=== PATIENT | female | born 1965 | race Caucasian/White ===

== ENCOUNTER 2020-10-21 14:58 | Observation (INO) ==
[2020-10-21 16:18] LABS: Basophils # 0.1 10*3/uL (0.0-0.2); Basophils % 0.4 % (0.0-0.8); Eosinophils % 0.1 % (0.00-10.9); Hematocrit 37.1 VOL% (35.7-47.0); Hemoglobin 13.6 GM/DL (12.0-16.0); Immature Granulocytes % 0.6 %; Immature Granulocytes Absolute 0.08 #; Lymphocytes # 0.6 10*3/uL (1.4-4.0); Lymphocytes % 4.5 % (21.3-54.2); Mean Corpuscular HGB Conc 36.7 GM/DL (32-36); Mean Corpuscular Volume 87.3 FL (87-102); Mean Platelet Volume 9.8 FL (9.6-12.0); Monocytes % 13.7 % (1.7-12.7); NRBC # 0.02 10*3/uL; Neutrophils % 80.7 % (38.7-73.9); Platelet Count 162 T/CUMM (130-400); Red Blood Count 4.25 MC/CUMM (3.8-5.5); Red Cell Distribution Width 14.3 % (9.3-17.3); White Blood Count 14.2 T/CUMM (4-12)
[2020-10-21 16:30] LABS: INR 1.2; PT Patient Result 12.3 SECS (9.8-11.9)
[2020-10-21 16:34] LABS: Bacteria,Urine Many /HPF (Few); Bilirubin,Urine Negative (Negative); Blood, Urine Large mg/dL (Negative); Glucose,Urine (UA) Negative (Negative); Ketones,Urine 5 mg/dL (Negative); Nitrite,Urine Positive (Negative); Protein,Urine 100 MG/DL; RBC,Urine 16 /HPF (0-4); Squamous Epithelial Cell,Urine Occasional /HPF (0-10); Urine Appearance Slightly Hazy (Clear); Urine Color Yellow (Yellow); Urine Specific Gravity 1.015 (1.001-1.035); Urine Urobilinogen < 2.0 EU/DL (0.2-1.0); WBC,Urine 105 /HPF (0-6)
[2020-10-21 16:37] LABS: Barbiturates Screen,Urine Negative (Negative); Benzodiazepines Screen,Urine Negative (Negative); Cannabinoid Screen,Urine Negative (Negative); Opiate Screen,Urine Negative (Negative); Phencyclidine Screen,Urine Negative (Negative)
[2020-10-21 16:40] LABS: Alanine Aminotransferase 13 U/L (13-56); Albumin 2.8 G/DL (3.4-5.0); Alkaline Phosphatase 61 U/L (45-117); Aspartate Amino Transferase 34 U/L (0-37); Bilirubin,Total < 0.39 MG/DL (0.2-1.0); Blood Urea Nitrogen 12 MG/DL (7-18); Calcium 8.4 MG/DL (8.5-10.1); Estimated Glom Filtration Rate 57 ML/MIN; Glucose 115 MG/DL (74-106); Osmolality,Calculated 257.1 MOS/KG (273-304); Total Protein 6.8 G/DL (6.4-8.3); Troponin I < 0.015 NG/ML (0.00-0.045)
[2020-10-21] MEDS ORDERED: ACETAMINOPHEN 500 MG TABLET ONE (16:43)
[2020-10-21 16:45] LABS: Acetaminophen < 2.0 UG/ML (10-30); Salicylate 6.3 MG/DL (2.8-20)
[2020-10-21] MEDS ORDERED: MAGNESIUM SULF RIDER 2 GM in PREMIX 1 EACH IV STA (16:48)
[2020-10-21] MEDS ORDERED: POTASSIUM CHLORIDE 20 MEQ TABLET PO STA (16:56)
[2020-10-21] MEDS ORDERED: ACETAMINOPHEN 500 MG TABLET PO STA (17:13)
[2020-10-21 18:24] LABS: Lymphocytes 6 % (20-55); Segmented Neutrophils 85 % (50-85); Total Cells Counted 100
[2020-10-21] MEDS ORDERED: MEROPENEM 500 MG in SODIUM CHLORIDE 0.9% 100 ML IV ONE (18:34)
[2020-10-21] MEDS ORDERED: DEXTROSE 50% 25 GM/50 ML VIAL IV PRN (19:41)
[2020-10-21] MEDS ORDERED: ONDANSETRON 4 MG/2 ML VIAL IV PRN (19:41)
[2020-10-21] MEDS ORDERED: DOCUSATE SODIUM 100 MG CAPSULE PO PRN (19:41)
[2020-10-21] MEDS ORDERED: GLUCAGON 1 MG VIAL IM PRN (19:41)
[2020-10-21] MEDS ORDERED: DEXT 5% NACL 0.9% KCL 20 MEQ 20 MEQ/1,000 ML BAG IV SCH (21:00)
[2020-10-21] MEDS: POTASSIUM CHLORIDE 20 MEQ TABLET PO SCH (21:33)
[2020-10-21] MEDS: MAGNESIUM OXIDE 400 MG TABLET PO SCH (21:33)
[2020-10-21] MEDS: ENOXAPARIN 40 MG/0.4 ML SYRINGE SUBCUT SCH (21:34)
[2020-10-21] MEDS ORDERED: LURASIDONE 60 MG TABLET PO SCH (22:30)
[2020-10-21] MEDS: DIVALPROEX 500 MG TABLET PO SCH (23:05)
[2020-10-21] MEDS: QUEtiapine 100 MG TABLET PO SCH (23:06)
[2020-10-21] MEDS: FLUoxetine 20 MG CAPSULE PO SCH (23:07)
[2020-10-21] MEDS: METAXALONE 800 MG TABLET PO SCH (23:08)
[2020-10-21] MEDS: LURASIDONE 40 MG TABLET PO SCH (23:08)
[2020-10-22] MEDS: ACETAMINOPHEN 325 MG TABLET PO PRN ×3 (00:24→12:39)
[2020-10-22 05:51] LABS: Basophils % 0.3 % (0.0-0.8); Eosinophils % 0.1 % (0.00-10.9); Hemoglobin 12.5 GM/DL (12.0-16.0); Immature Granulocytes % 0.8 %; Immature Granulocytes Absolute 0.09 #; Lymphocytes # 0.8 10*3/uL (1.4-4.0); Lymphocytes % 7.1 % (21.3-54.2); Mean Corpuscular HGB Conc 35.7 GM/DL (32-36); Mean Corpuscular Volume 89.5 FL (87-102); Mean Platelet Volume 10.1 FL (9.6-12.0); Monocytes % 12.7 % (1.7-12.7); Platelet Count 140 T/CUMM (130-400); Red Blood Count 3.91 MC/CUMM (3.8-5.5); Red Cell Distribution Width 14.3 % (9.3-17.3); White Blood Count 11.8 T/CUMM (4-12)
[2020-10-22 06:11] LABS: Hypochromasia 1+; Microcytosis Slight
[2020-10-22 06:12] LABS: Platelet Estimate Normal
[2020-10-22 06:16] LABS: Calcium 8.3 MG/DL (8.5-10.1); Osmolality,Calculated 261.7 MOS/KG (273-304); Thyroid Stimulating Hormone 0.329 uIU/ml (0.358-3.74)
[2020-10-22] MEDS ORDERED: INFLUENZA VIRUS VACCINE 0.5 ML SYRINGE IM ONE (09:00)
[2020-10-22] MEDS: cefTRIAXone 2,000 MG in SYRINGE 1 EACH IV SCH (09:32)
[2020-10-22] MEDS: POTASSIUM CHLORIDE 20 MEQ TABLET PO SCH ×3 (09:34→20:48)
[2020-10-22] MEDS: MAGNESIUM OXIDE 400 MG TABLET PO SCH ×2 (09:34→20:48)
[2020-10-22] MEDS: metOLazone 5 MG TABLET PO SCH (12:31)
[2020-10-22] MEDS: FUROSEMIDE 80 MG TABLET PO SCH (15:14)
[2020-10-22] MEDS: NICOTINE 21 MG/24 HR PATCH TRANSDERM SCH (15:14)
[2020-10-22] MEDS: METAXALONE 800 MG TABLET PO SCH (20:47)
[2020-10-22] MEDS: DIVALPROEX 500 MG TABLET PO SCH (20:47)
[2020-10-22] MEDS: QUEtiapine 100 MG TABLET PO SCH (20:47)
[2020-10-22] MEDS: LURASIDONE 40 MG TABLET PO SCH (20:47)
[2020-10-22] MEDS: FLUoxetine 20 MG CAPSULE PO SCH (20:48)
[2020-10-22] MEDS: ENOXAPARIN 40 MG/0.4 ML SYRINGE SUBCUT SCH (20:53)
[2020-10-23] MEDS: ACETAMINOPHEN 325 MG TABLET PO PRN ×2 (00:07→11:51)
[2020-10-23 05:45] LABS: Basophils # 0.1 10*3/uL (0.0-0.2); Basophils % 0.8 % (0.0-0.8); Eosinophils % 0.1 % (0.00-10.9); Hematocrit 34.1 VOL% (35.7-47.0); Immature Granulocytes % 0.9 %; Immature Granulocytes Absolute 0.07 #; Lymphocytes # 1.1 10*3/uL (1.4-4.0); Lymphocytes % 14.3 % (21.3-54.2); Mean Corpuscular HGB Conc 35.2 GM/DL (32-36); Mean Corpuscular Volume 89.5 FL (87-102); Mean Platelet Volume 10.3 FL (9.6-12.0); Monocytes % 15.1 % (1.7-12.7); Neutrophils % 68.8 % (38.7-73.9); Platelet Count 145 T/CUMM (130-400); Red Blood Count 3.81 MC/CUMM (3.8-5.5); Red Cell Distribution Width 14.4 % (9.3-17.3)
[2020-10-23 05:56] LABS: Calcium 8.4 MG/DL (8.5-10.1); Osmolality,Calculated 258.8 MOS/KG (273-304)
[2020-10-23 06:10] LABS: Free T4 (Free Thyroxine) 0.85 NG/DL (0.76-1.46)
[2020-10-23] MEDS: NICOTINE 21 MG/24 HR PATCH TRANSDERM SCH (09:53)
[2020-10-23] MEDS: cefTRIAXone 2,000 MG in SYRINGE 1 EACH IV SCH (09:53)
[2020-10-23] MEDS: POTASSIUM CHLORIDE 20 MEQ TABLET PO SCH (09:54)
[2020-10-23] MEDS: MAGNESIUM OXIDE 400 MG TABLET PO SCH (09:54)
[2020-10-23] MEDS: metOLazone 5 MG TABLET PO SCH (09:54)
[2020-10-23] MEDS: FUROSEMIDE 80 MG TABLET PO SCH (09:54)
[2020-10-23 11:43] VITALS: BP 110/67
[2020-10-24] MEDS ORDERED: CEFUROXIME 250 MG TABLET PO SCH (09:00)
== END 2020-10-23 13:00 | disposition home or self-care (01) | DRG 689 ==
LOC: N.ED 14:58 → N.EDINP 14:58 → SUATTDRO 20:04 → N.5E 20:09
PROVIDERS: ADMIT Hospitalist; ATTEND Family Medicine